=== PATIENT | female | born 1955 | race Caucasian/White ===

== ENCOUNTER 2021-06-06 20:03 | Inpatient (IN) | payer OTHER ==
[~2021-06-06] VITALS: Ht 157.5 cm; Wt 64.0 kg
[2021-06-06 20:21] VITALS: BP 126/57
[2021-06-06] MEDS ORDERED: SERTRALINE HCL100 MG PO (20:38)
[2021-06-06 21:17] LABS: HEMATOCRIT 39.4 % (37.0-47.0); HEMOGLOBIN 13.6 gm/dL (12.0-15.0); MCH 28.9 pg (26.0-34.0); MCHC 34.5 g/dL (28.0-37.0); MCV 83.9 fL (80.0-100.0); MPV 8.6 fl. (7.2-11.1); NUCLEATED RBCS 0 /100WBC; PLATELET COUNT* 197 thou/uL (150-400); RDW-CV 14.7 % (10.5-14.5); WBC 11.7 thou/uL (4.0-11.0)
[2021-06-06 21:28] LABS: CALCIUM 8.1 mg/dL (8.5-10.1); CREATININE 0.6 mg/dL (0.6-1.3); POTASSIUM 3.2 mmol/L (3.5-5.1)
[2021-06-06 21:32] LABS: ALBUMIN 3.8 g/dL (3.4-5.0); MAGNESIUM 1.8 mg/dL (1.8-2.4); TOTAL BILIRUBIN 0.5 mg/dL (<0.1-1.0); TOTAL PROTEIN 7.3 g/dL (6.4-8.2)
[2021-06-06 21:58] LABS: ABSOLUTE LYMPHOCYTES 1.3 thou/uL (0.8-5.3); ABSOLUTE MONOCYTES 0.9 thou/uL (0.0-1.2); ABSOLUTE NEUTROPHILS 9.5 thou/uL (1.6-8.1); METAMYELOCYTES 1 %; MYELOCYTES 2 %; PLATELET ESTIMATE ADEQUATE; PROMYELOCYTES 2 %
[2021-06-06 22:03] LABS: BE 1.3 mmol/L (-2 to +3); PO2 65.5 mmHg (75.0-100.0); pH 7.405 (7.340-7.450)
[2021-06-07] VITALS (7 sets, daily range): BP systolic 106–119; BP diastolic 47–66
[2021-06-07 11:18] LABS: URINE BILIRUBIN NEGATIVE (Negative); URINE BLOOD NEGATIVE (Negative); URINE CLARITY CLEAR; URINE COLOR YELLOW; URINE GLUCOSE-RANDOM NEGATIVE (Negative); URINE KETONES NEGATIVE (Negative); URINE LEUKOCYTES-REFLEX NEGATIVE (Negative); URINE NITRITE-REFLEX NEGATIVE (Negative); URINE PROTEIN NEGATIVE (Negative); URINE UROBILINOGEN 0.2 E.U./dl (0.2-1.0)
--- NOTE | 2021-06-07 11:32 | 2DMMODE ---
[place] [address] 2 D/M-MODE ECHOCARDIOGRAM Name: SOCRATES MICHAUD Room: [facility] ADM IN [employer].#: [id number] Admission: 06/07/21 Attend Phys: Flaquita Lizama, Discharge: Date of : 55 Date of Service: 06/07/21 1131 Report #: [id number] THIS REPORT FOR: cc: FAM - No family physician/PCP FAM - No family physician/PCP Diego Dwyer MD [facility] ~ APPROVED REPORT Study performed: 06/07/2021 10:32:52 EXAM: Comprehensive 2D, Doppler, and color-flow Echocardiogram Patient Location: In-Patient Room #: 227 Status: routine BSA: 1.64 HR: 110 bpm BP: 117/60 mmHg Rhythm: Atrial Fibrillation Other Information Study Quality: Good Indications Atrial Fibrillation Dyspnea 2D Dimensions IVSd: 11.29 (7-11mm) LVOT Diam: 19.12 (18-24mm) LVDd: 41.70 mm PWd: 9.95 (7-11mm) Ascending Ao: 28.07 (22-36mm) LVDs: 24.04 (25-40mm) Aortic Root: 28.31 mm Volumes Left Atrial Volume (Systole) LA ESV Index: 32.80 mL/m2 Aortic Valve AoV Peak Jonathan.: 1.65 m/s AO Peak Gr.: 10.89 mmHg LVOT Max P.27 mmHg AO Mean Gr.: 5.53 mmHg LVOT Mean P.91 mmHg LVOT Max V: 1.03 m/s AO V2 VTI: 27.03 cm LVOT Mean V: 0.62 m/s AKOSUA (VTI): 2.28 cm2 LVOT V1 VTI: 21.50 [place] [address] 2 D/M-MODE ECHOCARDIOGRAM Name: SOCRATES MICHAUD Room: [place] [address] ADM IN [facility].#: [id number] Admission: 06/07/21 Attend Phys: Flaquita Lizama, Discharge: Date of : 55 Date of Service: 06/07/21 1131 Report #: [id number] Pulmonary Valve PV Peak Jonathan.: 1.04 m/s PV Peak Gr.: 4.32 mmHg Left Ventricle The left ventricle is normal size. There is normal LV segmental wall motion. There is normal left ventricular wall thickness. Left ventricular systolic function is normal. LVEF is 65-70%. This study is not technically sufficient to allow evaluation of the LV diastolic function due to atrial flutter. Right Ventricle The right ventricle is normal size. The right ventricular systolic function is normal. Atria The left atrium size is normal. The right atrium size is normal. Aortic Valve The aortic valve is normal in structure. No aortic regurgitation is present. There is no aortic valvular stenosis. Mitral Valve The mitral valve is normal in structure. Mild mitral regurgitation. No evidence of mitral valve stenosis. Tricuspid Valve The tricuspid valve is normal in structure. There is no tricuspid valve regurgitation noted. Pulmonic Valve The pulmonary valve is normal in structure. There is no pulmonic valvular regurgitation. Great Vessels The aortic root is normal in size. IVC is normal in size and collapses >50% with inspiration. Pericardium There is no pericardial effusion. <Conclusion> The left ventricle is normal size. There is normal left ventricular wall thickness. Left ventricular [place] [address] 2 D/M-MODE ECHOCARDIOGRAM Name: SOCRATES MICHAUD Room: [address] IN .R.#: [id number] Admission: 06/07/21 Attend Phys: Flaquita Lizama, Discharge: Date of : 55 Date of Service: 06/07/21 1131 Report #: [id number] LVEF is 65-70%. This study is not technically sufficient to allow evaluation of the LV diastolic function due to atrial flutter. Mild mitral regurgitation. IVC is normal in size and collapses >50% with inspiration. <ELECTRONICALLY SIGNED> By: Diego Dwyer MD, FACC 06/07/21 1131 113 113 Diego Dwyer MD, FAC /INF
--- NOTE | 2021-06-07 11:46 | EKG ---
[place] [address] ELECTROCARDIOGRAM REPORT Name: SOCRATES MICHAUD Room: [place] [address] ADM [place] .R.#: [id number] Admission: 06/07/21 Attend Phys: Flaquita Lizama, Discharge: Date of : 55 Date of Service: 06/06/212044 Report #: [id number] THIS REPORT FOR: //name// [facility] ED Test Date: 2021-06-06 Test Time: 20:45:27 Pat Name: SOCRATES STALEYYOUNG RHODES Department: Room: [facility] Gender: F [employer] Advisor: HAYDE : 1955 Requested By: Neva Ash Order Number: [id number] MD: Diego Dwyer Measurements Intervals [place] Rate: 82 P: 47 [place]: 168 QRS: 27 QRSD: 111 T: 44 QT: 436 QTc: 510 Interpretive Statements Sinus rhythm Premature atrial contractions No previous ECG available for comparison Electronically Signed On 06-07-2021 11:46:11 CDT by Diego Dwyer [email or web address] <ELECTRONICALLY SIGNED> By: Diego Dwyer MD, FACC 06/07/21 1146 44 Diego Dwyer MD, [facility] /EPI
--- NOTE | 2021-06-07 11:48 | EKG ---
[place] [address] ELECTROCARDIOGRAM REPORT Name: SOCRATES MICHAUD Room: [facility] ADM IN .R.#: [id number] Admission: 06/07/21 Attend Phys: Flaquita Lizama, Discharge: Date of : 55 Date of Service: 06/06/21 2254 Report #: [id number] THIS REPORT FOR: //name// [facility] ED Test Date: 2021-06-06 Test Time: 22:54:13 Pat Name: SOCRATES RHODES Department: Room: [facility] Gender: F [employer]: [place] : 1955 Requested By: Neva Ash Order Number: [id number] MD: Diego Dwyer Measurements Intervals [place] Rate: 139 P: [place]: QRS: -35 QRSD: 78 T: QT: 273 QTc: 415 Interpretive Statements Atrial fibrillation Ventricular premature complex Left axis deviation Repol abnrm suggests ischemia, diffuse leads Compared to ECG 06/06/2021 20:45:27 Left-axis deviation now present Early repolarization now present Possible ischemia now present Sinus rhythm no longer present Left bundle-branch block no longer present Prolonged QT interval no longer present Electronically Signed On 06-07-2021 11:47:56 CDT by Diego Dwyer [email or web address] <ELECTRONICALLY SIGNED> By: Diego Dwyer MD, [facility] 06/07/21 1147 2254 2254 Diego Dwyer MD, [facility] /EPI
[2021-06-08] VITALS: BP 138/48
[2021-06-08 02:07] LABS: GLYCOHEMOGLOBIN (HGB A1C) 5.8 % (4.8-5.6)
[2021-06-08 04:00] VITALS: BP 122/66
[2021-06-08 05:32] LABS: HEMOGLOBIN 13.5 gm/dL (12.0-15.0); MCH 28.3 pg (26.0-34.0); MCHC 33.7 g/dL (28.0-37.0); MCV 83.9 fL (80.0-100.0); MPV 8.8 fl. (7.2-11.1); RBC 4.76 mil/uL (4.20-5.00); WBC 14.8 thou/uL (4.0-11.0)
[2021-06-08 05:45] LABS: ALBUMIN 3.4 g/dL (3.4-5.0); ALKALINE PHOSPHATASE 63 U/L (46-116); ANION GAP 6 mmol/L (7-16); BUN 17 mg/dL (7-18); CHLORIDE 104 mmol/L (98-107); CO2 28 mmol/L (21-32); CREATININE 0.7 mg/dL (0.6-1.3); GLUCOSE 118 mg/dL (70-99); MAGNESIUM 2.2 mg/dL (1.8-2.4); POTASSIUM 4.3 mmol/L (3.5-5.1); SGOT 19 U/L (15-37); SGPT 19 U/L (30-65); SODIUM 138 mmol/L (136-145); TOTAL BILIRUBIN 0.5 mg/dL (<0.1-1.0); TOTAL PROTEIN 6.8 g/dL (6.4-8.2); TROPONIN-I LEVEL <0.06 ng/mL (<0.06)
[2021-06-08 08:00] VITALS: BP 134/61
[2021-06-08 12:00] VITALS: BP 123/67
[2021-06-08 16:00] VITALS: BP 101/47
[2021-06-08 20:00] VITALS: BP 111/63
[2021-06-09] VITALS: BP 110/61
[2021-06-09 04:00] VITALS: BP 115/67
[2021-06-09] MEDS ORDERED: LEVALBUTER0.63 MG/3 INH (09:39)
[2021-06-09] MEDS ORDERED: LEVOFLOXACIN500 MG PO (09:39)
[2021-06-09] MEDS ORDERED: LANOXIN125 MCG PO (09:39)
[2021-06-09] MEDS ORDERED: NEBULIZER MISCELL (09:39)
[2021-06-09] MEDS ORDERED: CARDIZEM LA240 M1 PO (09:39)
[2021-06-09] MEDS ORDERED: PREDNISONE 10 M10 M1 PO (09:39)
[2021-06-09] MEDS ORDERED: XARELTO20 MG PO (09:39)
[2021-06-09 12:03] VITALS: BP 118/69
[2021-06-09 15:02] VITALS: BP 118/69
== END 2021-06-09 12:50 | disposition home or self-care (01) | DRG 177 ==
LOC: M.ERS 20:03 → M.TBA-ER 06-07 00:08 → M.2W 06-07 00:08
PROVIDERS: Personal Emergency Response Attendant; ADMIT Internal Medicine; ATTEND Internal Medicine
DX: J15.6 Pneumonia due to other Gram-negative bacteria (principal); J96.01 Acute respiratory failure with hypoxia; I48.92 Unspecified atrial flutter; I48.20 Chronic atrial fibrillation, unspecified; J44.1 Chronic obstructive pulmonary disease with (acute) exacerbation; R65.10 Systemic inflammatory response syndrome (SIRS) of non-infectious origin without acute organ dysfunction; E87.6 Hypokalemia; F41.9 Anxiety disorder, unspecified; F17.210 Nicotine dependence, cigarettes, uncomplicated; Z20.822 Contact with and (suspected) exposure to COVID-19; Z79.899 Other long term (current) drug therapy